=== PATIENT | male | born 1965 | race Caucasian/White ===

== ENCOUNTER 2019-03-29 23:30 | Inpatient (IN) | payer BC ==
[2019-03-29] MEDS ORDERED: EPINEPHrine 4 MG in DEXTROSE 5% IN WATER 250 ML IV ONE ×2 (23:37)
[2019-03-29] MEDS: SODIUM CHLORIDE 0.9% 500 ML 500 ML IV SCH (23:48)
[2019-03-29 23:49] LABS: Glucose,Whole Blood 235 mg/dL (75-99)
[2019-03-29] MEDS: NOREPINEPHRINE 32 MG in SODIUM CHLORIDE 0.9% 218 ML IV SCH (23:56)
[2019-03-30 00:07] LABS: HCT 54.7 % (39.0-53.0); HGB 14.9 gm/dL (13.0-17.5); Hypochromasia Marked; MCH 32.5 pg (25.0-35.0); MCHC 27.3 g/dL (31.0-37.0); Macrocytosis Marked; Mean Platelet Volume 8.3; Platelet Count 167 k/uL (150-450); RDW 14.5 % (11.5-15.5)
[2019-03-30 00:08] LABS: Acetaminophen <10.0 ug/mL; African American GFR (CKD) 58 (>60 ml/min/1.73 sqM); Albumin 3.2 g/dL (3.5-5.0); Alcohol <10 mg/dL; Anion Gap 19 mmol/L; Calcium 8.2 mg/dL (8.4-10.2); Carbon Dioxide 17 mmol/L (22-30); Chloride 102 mmol/L (98-107); Creatine Kinase 154 U/L (55-170); Glucose 289 mg/dL (74-99); Non-African American GFR(CKD) 50 (>60 ml/min/1.73 sqM); Salicylate <1.0 mg/dL; Sodium 138 mmol/L (137-145); Total Bilirubin 0.5 mg/dL (0.2-1.3); Total Protein 5.3 g/dL (6.3-8.2)
[2019-03-30 00:11] LABS: INR 1.2 (<1.2); Partial Thromboplastin Time 32.2 sec (22.0-30.0); Prothrombin Time 12.2 sec (9.0-12.0)
--- NOTE | 2019-03-30 00:12 | XR ---
EXAMINATION TYPE: XR chest 1V portable DATE OF EXAM: 03/29/2019 COMPARISON: NONE HISTORY: Fever TECHNIQUE: Single view FINDINGS: There is nasogastric tube in the tip is well into the stomach. There is no heart failure. T here is no confluent pneumonic infiltrate. There are chest leads. Endotracheal tube is 2.5 cm from th e lisa. There is slight blunting of the left costophrenic angle. IMPRESSION: There is some pleural reaction and atelectasis left lung base. No heart failure.
[2019-03-30 00:17] LABS: ALT 70 U/L (4-49); AST 48 U/L (17-59); Alkaline Phosphatase 77 U/L (38-126); Blood Urea Nitrogen 22 mg/dL (9-20); Magnesium 2.1 mg/dL (1.6-2.3); Potassium 4.4 mmol/L (3.5-5.1)
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
--- NOTE | 2019-03-30 00:36 | CT ---
EXAMINATION TYPE: CT brain cspine wo con DATE OF EXAM: 03/30/2019 COMPARISON: None HISTORY: AMS CT DLP: 1286.1 mGycm Automated exposure control for dose reduction was used. Ventricles have normal size. There is no mass effect nor midline shift. There is no sign of intracran ial hemorrhage. Calvarium is intact. The skull base is intact. The cervical vertebra have normal spacing and alignment. Posterior elements are intact. The facet kike nts are intact. There is endotracheal tube and nasogastric tube. Prevertebral soft tissues appear nor mal. IMPRESSION: Negative CT scan of the brain. Negative CT scan cervical spine.
[2019-03-30 00:45] LABS: ABG Base Excess -13.7 mmol/L; ABG HCO3 16 mmol/L (21-25); ABG Oxygen Saturation 99.6 % (94-97); ABG PCO2 54 mmHg (35-45); ABG PO2 360 mmHg (83-108); ABG TCO2 18 mmol/L (19-24)
[2019-03-30 00:47] LABS: Basophils # (M) 0.09 k/uL (0-0.2); Lymphocytes # (M) 4.09 k/uL (1.0-4.8); Monocytes # (M) 0.56 k/uL (0-1.0); Neutrophils # (M) 4.65 k/uL (1.3-7.7); Neutrophils % (M) 50 %; Nucleated Red Blood Cells 1 /100 WBC (0-0); Total Cells Counted 200; WBC 9.3 k/uL (3.8-10.6)
[2019-03-30] MEDS ORDERED: SODIUM CHLORIDE 0.9% 1,000 ML IV ONE ×4 (00:49→12:14)
[2019-03-30] MEDS: SODIUM CHLORIDE 0.9% 500 ML 500 ML IV SCH (00:50)
[2019-03-30 00:56] LABS: Allen Test Performed? yes
[2019-03-30 01:34] LABS: Appearance,Urine Cloudy (Clear); Bacteria,Urine Occasional /hpf; Bilirubin,Urine Negative (Negative); Blood,Urine Large (Negative); Color,Urine Yellow; Glucose,Urine (UA) Negative (Negative); Hyaline Casts,Urine 189 /lpf (0-2); Ketones,Urine Negative (Negative); Leukocyte Esterase,Urine Negative (Negative); Mucus,Urine Few /hpf; Nitrite,Urine Negative (Negative); Protein,Urine 2+ (Negative); RBC,Urine >182 /hpf (0-5); WBC,Urine 19 /hpf (0-5)
[2019-03-30 01:37] LABS: Amphetamine Screen,Urine Not Detected (NotDetected); Barbiturate Screen,Urine Not Detected (NotDetected); Benzodiazepines Screen,Urine Not Detected (NotDetected); Cocaine Screen,Urine Detected (NotDetected); Methadone Screen, Urine Not Detected (NotDetected); Opiate Screen,Urine Not Detected (NotDetected); Oxycodone Screen, Urine Not Detected (NotDetected); Phencyclidine Screen,Urine Not Detected (NotDetected); Tricyclic Antidepressant,Urine Not Detected (NotDetected); Urn Cannabinoid Scrn Detected (NotDetected)
[2019-03-30] MEDS ORDERED: MIDAZOLAM 1 MG/ML 5 ML VIAL IV STA (01:39)
[2019-03-30] MEDS: SODIUM CHLORIDE 0.9% 1,000 ML IV SCH ×5 (01:43→22:45)
[2019-03-30] MEDS: NOREPINEPHRINE 32 MG in SODIUM CHLORIDE 0.9% 218 ML IV SCH (02:46)
[2019-03-30] MEDS ORDERED: ACETAMINOPHEN SUPPOSITORY 650 MG SUPP RECTAL PRN (04:36)
[2019-03-30] MEDS ORDERED: ARTIFICIAL TEARS OINTMENT 3.5 GM TUBE BOTH EYES PRN (04:36)
[2019-03-30] MEDS ORDERED: NALOXONE 0.4 MG/ML 1 ML VIAL IV PRN (04:36)
[2019-03-30] MEDS ORDERED: HEPARIN SODIUM,PORCINE 5,000 UNIT/ML 1 ML VIAL IV ONE (04:39)
[2019-03-30 05:23] LABS: Basophils % (A) 0 %; Eosinophils % (A) 0 %; HCT 50.1 % (39.0-53.0); HGB 15.2 gm/dL (13.0-17.5); Hypochromasia Marked; Lymphocytes # (A) 0.5 k/uL (1.0-4.8); Lymphocytes % (A) 6 %; MCH 32.3 pg (25.0-35.0); MCHC 30.3 g/dL (31.0-37.0); Macrocytosis Moderate; Mean Platelet Volume 7.4; Monocytes # (A) 0.6 k/uL (0-1.0); Monocytes % (A) 7 %; Neutrophils % (A) 86 %; Platelet Count 178 k/uL (150-450); RDW 14.3 % (11.5-15.5); WBC 9.3 k/uL (3.8-10.6)
[2019-03-30 05:31] LABS: MCV 106.6 fL (80.0-100.0)
[2019-03-30] MEDS: HEPARIN SOD,PORK IN 0.45% NACL 25,000 UNIT in 0.45% NACL 1 250ML.BAG IV SCH (05:32)
[2019-03-30 05:37] LABS: Calcium 7.3 mg/dL (8.4-10.2); Potassium 4.7 mmol/L (3.5-5.1)
[2019-03-30 06:26] LABS: Glucose,Whole Blood 104 mg/dL (75-99)
[2019-03-30] MEDS: NOREPINEPHRINE 4 MG in SODIUM CHLORIDE 0.9% 250 ML IV SCH (06:33)
[2019-03-30] MEDS: PROPOFOL 1,000 MG in EMPTY BAG 1 BAG IV SCH ×2 (06:34→13:13)
[2019-03-30 07:08] LABS: ABG Base Excess -1.5 mmol/L; ABG HCO3 25 mmol/L (21-25); ABG Oxygen Saturation 94.6 % (94-97); ABG PCO2 52 mmHg (35-45); ABG PH 7.29 (7.35-7.45); ABG PO2 73 mmHg (83-108); ABG TCO2 27 mmol/L (19-24); Allen Test Performed? Yes
[2019-03-30] MEDS ORDERED: CISATRACURIUM 2 MG/ML 5 ML VIAL IV ONE (11:08)
[2019-03-30] MEDS: IPRATROPIUM-ALBUTEROL 3 ML NEB INHALATION SCH ×4 (11:12→23:12)
--- NOTE | 2019-03-30 12:15 | XR ---
EXAMINATION TYPE: XR chest 1V portable DATE OF EXAM: 03/30/2019 Comparison: 03/29/2019 Clinical History: 53 year-old male shortness of breath Findings: ET tube is satisfactory. NG tube courses below the diaphragm. Left subclavian CVC tip at the cavoatri al junction. Heart remains borderline enlarged. Small left effusion with left basilar retrocardiac op acity persists. Mild interstitial prominence is unchanged. Impression: 1. Continued small left effusion with adjacent left basilar and retrocardiac atelectasis and/or conso lidation. 2. Stable borderline heart size.
[2019-03-30] MEDS: PIPERACILLIN-TAZOBACTAM 3.375 GM in SODIUM CHLORIDE 0.9% 100 ML IVPB SCH ×2 (13:13→16:17)
[2019-03-30] MEDS: CHLORHEXIDINE GLUCONATE 15 ML CUP MUCOUS MEM SCH ×2 (13:15→20:35)
[2019-03-30] MEDS: PANTOPRAZOLE 40 MG/10 ML VIAL IV SCH (13:15)
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
--- NOTE | 2019-03-30 14:00 | ECHOF ---
Referral Reason:cardiac arrest MEASUREMENTS -------- HEIGHT: 172.7 cm WEIGHT: 54.4 kg BP: RVIDd: 4.4 cm (< 3.3) IVSd: 1.1 cm (0.6 - 1.1) LVIDd: 3.7 cm (3.9 - 5.3) LVPWd: 1.0 cm (0.6 - 1.1) IVSs: 1.4 cm LVIDs: 2.9 cm LVPWs: 1.6 cm LAESV Index (A-L): 33.17 ml/m Ao Diam: 3.3 cm (2.0 - 3.7) AV Cusp: 2.4 cm (1.5 - 2.6) LA Diam: 2.4 cm (2.7 - 3.8) MV EXCURSION: 19.436 mm (> 18.000) MV EF SLOPE: 77 mm/s (70 - 150) EPSS: 0.9 cm MV E Keith: 0.37 m/s MV DecT: 368 ms MV A Keith: 0.43 m/s MV E/A Ratio: 0.85 RAP: 5.00 mmHg RVSP: 31.22 mmHg TAPSE: 13.88 mm FINDINGS -------- Sinus rhythm. This was a technically good study. Pt. on a vent. The left ventricular size is normal. Left ventricular wall thickness is normal. Overall left vent ricular systolic function is moderately impaired with, an EF between 35 - 40 %. There is paradoxica l/dysynergic septal motion consistent with right ventricular volume overload and/or elevated right ve ntricular end-diastolic pressure. Normal LAP. Grade 1 Diastolic Dysfunction. Basal inferoseptal L V wall motion is hypokinetic. Mid anterior LV wall motion is hypokinetic. Mid lateral LV wall m otion is hypokinetic. Mid inferior LV wall motion is hypokinetic. Mid inferoseptal LV wall julio on is hypokinetic. The right ventricle is severely enlarged. LA is midly dilated 29-33ml/m2. The right atrium is mildly enlarged. Aortic valve is trileaflet and is mildly thickened. The mitral valve is normal. The mitral valve leaflets are mildly thickened. Mild mitral annular c alcification present. Mild mitral regurgitation is present. The tricuspid valve appears myxomatous. Moderate tricuspid regurgitation present. Right ventricul ar systolic pressure is normal at < 35 mmHg. There is no pulmonic regurgitation present. The aortic root size is normal. Normal inferior vena cava with normal inspiratory collapse consistent with estimated right atrial pre ssure of 5 mmHg. There is a trivial pericardial effusion present. Large Pleural Effusion. CONCLUSIONS -------- 1. Sinus rhythm. 2. This was a technically good study. 3. Pt. on a vent. 4. The left ventricular size is normal. 5. Left ventricular wall thickness is normal. 6. Overall left ventricular systolic function is moderately impaired with, an EF between 35 - 40 %. 7. There is paradoxical/dysynergic septal motion consistent with right ventricular volume overload an d/or elevated right ventricular end-diastolic pressure. 8. Normal LAP. Grade 1 Diastolic Dysfunction. 9. Basal inferoseptal LV wall motion is hypokinetic. 10. Mid anterior LV wall motion is hypokinetic. 11. Mid lateral LV wall motion is hypokinetic. 12. Mid inferior LV wall motion is hypokinetic. 13. Mid inferoseptal LV wall motion is hypokinetic. 14. The right ventricle is severely enlarged. 15. LA is midly dilated 29-33ml/m2. 16. The right atrium is mildly enlarged. 17. Aortic valve is trileaflet and is mildly thickened. 18. The mitral valve is normal. 19. The mitral valve leaflets are mildly thickened. 20. Mild mitral annular calcification present. 21. Mild mitral regurgitation is present. 22. The tricuspid valve appears myxomatous. 23. Moderate tricuspid regurgitation present. 24. Right ventricular systolic pressure is normal at < 35 mmHg. 25. There is no pulmonic regurgitation present. 26. The aortic root size is normal. 27. Normal inferior vena cava with normal inspiratory collapse consistent with estimated right atrial pressure of 5 mmHg. 28. There is a trivial pericardial effusion present. 29. Large Pleural Effusion. STONE RUBBER: Katerin Marin RDCS
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
[2019-03-30] MEDS: METOPROLOL TARTRATE 25 MG TAB PO SCH ×2 (15:47→20:36)
[2019-03-30] MEDS: ASPIRIN 81 MG PO SCH (15:47)
--- NOTE | 2019-03-30 18:21 | P.HPIM ---
History of Present Illness H&P Date: 03/30/19 Chief Complaint: Acute cardiac arrest Patient is a 53-year-old male without significant past medical history was brought to the hospital by EMS. Patient was found unresponsive in the street and was EMS was called by the [facility]. When the EMS arrived patient was found to be unresponsive with pulse. During their assessment and transport into the ambulance a love began to have agonal breathing and lost pulses. CPR was initiated patient was intubated and brought to the ER. Patient received 5 epinephrine injections prior to arrival to the hospital. Patient was returned back to spontaneous circulation. CT head and cervical spine showed no acute infective process and fractures or dislocations. Chest x-ray showed there is some pleural reaction and atelectasis left lung base. No heart failure. EKG showed atrial fibrillation. Laboratory data reviewed. Hemoglobin 14.9, WBC9.3 Lactic acid 15.8, ALT 70 neck slightly UDS is positive for cocaine and marijuana. Troponin 0.108 and 1.250 cr 1.53 Review of Systems Review of systems could not be apparent from the patient. Past Medical History Additional Past Medical History / Comment(s): unknown History of Any Multi-Drug Resistant Organisms: None Reported Additional Past Surgical History / Comment(s): unknown Smoking Status: Unknown if ever smoked Past Alcohol Use History: Unable to Obtain Past Drug Use History: Unable to Obtain - Past Family History Mother History Unknown: Yes Medications and Allergies Allergies Allergy/AdvReac Type Severity Reaction Status Date / Time No Known Allergies Allergy Unverified 03/30/19 04:53 Physical Exam Vitals: Vital Signs Temp Pulse Resp BP Pulse Ox 03/30/19 11:15 88 03/30/19 10:30 65 24 122/88 96 03/30/19 10:15 64 24 121/80 97 03/30/19 10:00 66 19 125/88 97 03/30/19 09:45 65 19 117/87 96 03/30/19 09:30 65 24 111/82 03/30/19 09:15 64 24 109/80 95 03/30/19 09:00 64 20 107/82 94 L 03/30/19 08:45 65 21 110/83 93 L 03/30/19 08:30 66 16 124/91 93 L 03/30/19 08:15 70 20 101/72 94 L 03/30/19 08:00 98.2 F 64 22 94/67 91 L 03/30/19 07:45 65 20 94/67 91 L 03/30/19 07:30 65 20 97/70 92 L 03/30/19 07:15 68 20 93 L 03/30/19 07:00 70 20 111/78 93 L 03/30/19 06:45 73 20 148/117 93 L 03/30/19 06:30 86 26 H 136/94 95 03/30/19 06:00 98.2 F 82 28 H 134/92 96 03/30/19 05:48 81 24 134/92 95 03/30/19 05:40 79 22 139/96 94 L 03/30/19 05:20 75 20 120/88 95 03/30/19 05:10 71 19 128/96 95 03/30/19 05:00 77 22 126/89 93 L 03/30/19 04:50 74 22 126/89 95 03/30/19 04:40 77 20 138/101 94 L 03/30/19 04:30 77 20 127/89 95 03/30/19 04:20 82 20 127/89 94 L 03/30/19 04:10 74 20 122/87 03/30/19 04:00 75 28 H 129/88 94 L 03/30/19 03:50 76 20 112/78 95 03/30/19 03:40 74 20 107/74 95 03/30/19 03:30 75 18 102/72 95 03/30/19 03:20 71 16 104/78 95 03/30/19 03:10 72 21 98/66 95 03/30/19 02:50 71 20 100/70 95 03/30/19 02:10 71 20 74/52 97 03/30/19 01:40 79 20 79/54 95 03/30/19 01:10 79 20 92/60 93 L 03/30/19 00:40 80 17 81/58 99 03/30/19 00:10 85 18 96/61 99 03/30/19 00:03 86 19 96/68 99 03/29/19 23:32 97.8 F 84 16 61/41 100 Intake and Output 03/29/19 03/30/19 03/30/19 22:59 06:59 14:59 Intake Total 156.009 805.770 Output Total 180 110 Balance -23.991 695.770 Intake: IV 150 800 0.9 NS 150 800 Intake, IV Titration 6.009 5.770 Amount EPINEPHrine 4 mg In 4.802 Dextrose 5% in Water 250 ml @ 0.01 MCG/KG/MIN 2. 058 mls/hr IV .Q24H ONE Rx#:[id number] Norepinephrine 4 mg In 0.173 Sodium Chloride 0.9% 250 ml @ 0.05 MCG/KG/MIN 10. 369 mls/hr IV .Q24H MARIA Rx#:[id number] Propofol 1,000 mg In 1.034 5.770 Empty Bag 1 bag @ Titrate IV .Q0M MARIA Rx#: [id number] Output: Urine 180 110 Other: Weight 54.431 kg 54.431 kg PHYSICAL EXAMINATION: Patient is lying in the bed comfortably, currently sedated and intubated... HEENT: Normocephalic. Neck is supple. Pupils reactive. Nostrils clear. Oral cavity is moist. Ears reveal no drainage. Neck reveals no JVD, carotid bruits, or thyromegaly. CHEST EXAMINATION: Trachea is central. Symmetrical expansion. Bibasilar diminished air entry and coarse breath sounds.. CARDIAC: Normal S1, S2 with no gallops. No murmurs ABDOMEN: Soft. Bowel sounds normal. No organomegaly. No abdominal bruits. Extremities: reveal no edema. No clubbing or cyanosis Neurologically sedated and on mechanical ventilator.. No focal deficits noted Skin: No rash or skin lesions. Psychiatric: Could not base is completely Musculoskeletal: No joint swelling or deformity. Results CBC & Chem 7: 03/30/19 04:58 03/30/19 04:58 Labs: Abnormal Lab Results - Last 24 Hours (Table) 03/29/19 03/29/19 03/29/19 Range/Units 23:37 23:45 23:45 Hct 54.7 H (39.0-53.0) % MCV 119.0 H (80.0-100.0) fL MCHC 27.3 L (31.0-37.0) g/dL Neutrophils # (1.3-7.7) k/uL Lymphocytes # (1.0-4.8) k/uL Nucleated RBCs 1 H (0-0) /100 WBC Macrocytosis Marked A PT (9.0-12.0) sec INR (<1.2) APTT (22.0-30.0) sec ABG pH (7.35-7.45) ABG pCO2 (35-45) mmHg ABG pO2 (83-108) mmHg ABG HCO3 (21-25) mmol/L ABG Total CO2 (19-24) mmol/L ABG O2 Saturation (94-97) % Carbon Dioxide 17 L (22-30) mmol/L BUN 22 H (9-20) mg/dL Creatinine 1.53 H (0.66-1.25) mg/dL Glucose 289 H (74-99) mg/dL POC Glucose (mg/dL) 235 H (75-99) mg/dL Plasma Lactic Acid Delbert (0.7-2.0) mmol/L Calcium 8.2 L (8.4-10.2) mg/dL ALT 70 H (4-49) U/L Troponin I (0.000-0.034) ng/mL Total Protein 5.3 L (6.3-8.2) g/dL Albumin 3.2 L (3.5-5.0) g/dL Urine Protein (Negative) Urine Blood (Negative) Urine RBC (0-5) /hpf Urine WBC (0-5) /hpf Urine WBC Clumps (None) /hpf Urine Bacteria (None) /hpf Hyaline Casts (0-2) /lpf Urine Mucus (None) /hpf Urine Cocaine Screen (NotDetected) U Marijuana (THC) Screen (NotDetected) 03/29/19 03/29/19 03/29/19 Range/Units 23:45 23:45 23:45 Hct (39.0-53.0) % MCV (80.0-100.0) fL MCHC (31.0-37.0) g/dL Neutrophils # (1.3-7.7) k/uL Lymphocytes # (1.0-4.8) k/uL Nucleated RBCs (0-0) /100 WBC Macrocytosis PT 12.2 H (9.0-12.0) sec INR 1.2 H (<1.2) APTT 32.2 H (22.0-30.0) sec ABG pH (7.35-7.45) ABG pCO2 (35-45) mmHg ABG pO2 (83-108) mmHg ABG HCO3 (21-25) mmol/L ABG Total CO2 (19-24) mmol/L ABG O2 Saturation (94-97) % Carbon Dioxide (22-30) mmol/L BUN (9-20) mg/dL Creatinine (0.66-1.25) mg/dL Glucose (74-99) mg/dL POC Glucose (mg/dL) (75-99) mg/dL Plasma Lactic Acid Delbert 15.8 H* (0.7-2.0) mmol/L Calcium (8.4-10.2) mg/dL ALT (4-49) U/L Troponin I 0.108 H* (0.000-0.034) ng/mL Total Protein (6.3-8.2) g/dL Albumin (3.5-5.0) g/dL Urine Protein (Negative) Urine Blood (Negative) Urine RBC (0-5) /hpf Urine WBC (0-5) /hpf Urine WBC Clumps (None) /hpf Urine Bacteria (None) /hpf Hyaline Casts (0-2) /lpf Urine Mucus (None) /hpf Urine Cocaine Screen (NotDetected) U Marijuana (THC) Screen (NotDetected) 03/30/19 03/30/19 03/30/19 Range/Units 00:45 01:19 01:19 Hct (39.0-53.0) % MCV (80.0-100.0) fL MCHC (31.0-37.0) g/dL Neutrophils # (1.3-7.7) k/uL Lymphocytes # (1.0-4.8) k/uL Nucleated RBCs (0-0) /100 WBC Macrocytosis PT (9.0-12.0) sec INR (<1.2) APTT (22.0-30.0) sec ABG pH 7.09 L* (7.35-7.45) ABG pCO2 54 H (35-45) mmHg ABG pO2 360 H (83-108) mmHg ABG HCO3 16 L (21-25) mmol/L ABG Total CO2 18 L (19-24) mmol/L ABG O2 Saturation 99.6 H (94-97) % Carbon Dioxide (22-30) mmol/L BUN (9-20) mg/dL Creatinine (0.66-1.25) mg/dL Glucose (74-99) mg/dL POC Glucose (mg/dL) (75-99) mg/dL Plasma Lactic Acid Delbert (0.7-2.0) mmol/L Calcium (8.4-10.2) mg/dL ALT (4-49) U/L Troponin I (0.000-0.034) ng/mL Total Protein (6.3-8.2) g/dL Albumin (3.5-5.0) g/dL Urine Protein 2+ H (Negative) Urine Blood Large H (Negative) Urine RBC >182 H (0-5) /hpf Urine WBC 19 H (0-5) /hpf Urine WBC Clumps Few H (None) /hpf Urine Bacteria Occasional H (None) /hpf Hyaline Casts 189 H (0-2) /lpf Urine Mucus Few H (None) /hpf Urine Cocaine Screen Detected H (NotDetected) U Marijuana (THC) Screen Detected H (NotDetected) 03/30/19 03/30/19 03/30/19 Range/Units 04:58 04:58 04:58 Hct (39.0-53.0) % MCV 106.6 H D (80.0-100.0) fL MCHC 30.3 L (31.0-37.0) g/dL Neutrophils # 8.0 H (1.3-7.7) k/uL Lymphocytes # 0.5 L (1.0-4.8) k/uL Nucleated RBCs (0-0) /100 WBC Macrocytosis PT (9.0-12.0) sec INR (<1.2) APTT (22.0-30.0) sec ABG pH (7.35-7.45) ABG pCO2 (35-45) mmHg ABG pO2 (83-108) mmHg ABG HCO3 (21-25) mmol/L ABG Total CO2 (19-24) mmol/L ABG O2 Saturation (94-97) % Carbon Dioxide (22-30) mmol/L BUN 28 H (9-20) mg/dL Creatinine 1.60 H (0.66-1.25) mg/dL Glucose 139 H (74-99) mg/dL POC Glucose (mg/dL) (75-99) mg/dL Plasma Lactic Acid Delbert (0.7-2.0) mmol/L Calcium 7.3 L (8.4-10.2) mg/dL ALT (4-49) U/L Troponin I 1.250 H* (0.000-0.034) ng/mL Total Protein (6.3-8.2) g/dL Albumin (3.5-5.0) g/dL Urine Protein (Negative) Urine Blood (Negative) Urine RBC (0-5) /hpf Urine WBC (0-5) /hpf Urine WBC Clumps (None) /hpf Urine Bacteria (None) /hpf Hyaline Casts (0-2) /lpf Urine Mucus (None) /hpf Urine Cocaine Screen (NotDetected) U Marijuana (THC) Screen (NotDetected) 03/30/19 03/30/19 Range/Units 06:14 07:07 Hct (39.0-53.0) % MCV (80.0-100.0) fL MCHC (31.0-37.0) g/dL Neutrophils # (1.3-7.7) k/uL Lymphocytes # (1.0-4.8) k/uL Nucleated RBCs (0-0) /100 WBC Macrocytosis PT (9.0-12.0) sec INR (<1.2) APTT (22.0-30.0) sec ABG pH 7.29 L (7.35-7.45) ABG pCO2 52 H (35-45) mmHg ABG pO2 73 L (83-108) mmHg ABG HCO3 (21-25) mmol/L ABG Total CO2 27 H (19-24) mmol/L ABG O2 Saturation (94-97) % Carbon Dioxide (22-30) mmol/L BUN (9-20) mg/dL Creatinine (0.66-1.25) mg/dL Glucose (74-99) mg/dL POC Glucose (mg/dL) 104 H (75-99) mg/dL Plasma Lactic Acid Delbert (0.7-2.0) mmol/L Calcium (8.4-10.2) mg/dL ALT (4-49) U/L Troponin I (0.000-0.034) ng/mL Total Protein (6.3-8.2) g/dL Albumin (3.5-5.0) g/dL Urine Protein (Negative) Urine Blood (Negative) Urine RBC (0-5) /hpf Urine WBC (0-5) /hpf Urine WBC Clumps (None) /hpf Urine Bacteria (None) /hpf Hyaline Casts (0-2) /lpf Urine Mucus (None) /hpf Urine Cocaine Screen (NotDetected) U Marijuana (THC) Screen (NotDetected) Microbiology - Last 24 Hours (Table) 03/30/19 01:06 Sputum Culture - Preliminary Sputum 03/30/19 01:19 Urine Culture - Preliminary Urine,Clean Catch Thrombosis Risk Factor Assmnt - DVT/VTE Prophylaxis DVT/VTE Prophylaxis: Pharmacologic Prophylaxis ordered Assessment and Plan Assessment: Acute cardiopulmonary arrest likely due to cocaine and marijuana use. Currently on mechanical ventilator. Down time within 20 minutes Acute hypoxemic respiratory failure Acute non-ST elevated IA likely related to microvascular ischemia due to cocaine use Paroxysmal atrial fibrillation. Rate controlled. Possible anoxic encephalopathy Acute kidney injury most likely prerenal Severe lactic acidosis DVT prophylaxis Plan: Patient is currently on mechanical ventilator. Patient is also sedated. Patient will be continued on heparin drip and empiric antibiotics in the form of Zosyn. Cardiology and pulmonary is following. Patient was started on aspirin and Lopressor and Lipitor. Further recommendations based on the clinical course. Prognosis guarded. discussed with family at bedside in detail. Time with Patient: Greater than 30
[2019-03-30] MEDS: ATORVASTATIN 40 MG TAB PO SCH (20:19)
--- NOTE | 2019-03-30 23:34 | PCN ---
PROCEDURE NOTE PROCEDURE PERFORMED: Left subclavian triple-lumen catheter. PREOP DIAGNOSIS: Administration of fluids and pressors. POSTOP DIAGNOSIS: Administration of fluids and pressors. TRIPLE LUMEN CATHETER PLACEMENT: Indication: Hemodynamic monitoring/Intravenous access. A time-out was completed verifying correct patient, procedure, site, positioning, and implant(s) or special equipment if applicable. The patient was placed in a dependent position appropriate for triple lumen catheter placement based on the vein to be cannulated. The patient's left shoulder was prepped and draped in sterile fashion. 1% Lidocaine was used to anesthetize the surrounding skin area. A triple lumen 9F Cordis catheter was introduced into the subclavian vein using Seldinger technique. The catheter was threaded smoothly over the guide wire and appropriate blood return was obtained. Each lumen of the catheter was evacuated of air and flushed with sterile saline. The catheter was then sutured in place to the skin and a sterile dressing applied. Perfusion to the extremity distal to the point of catheter insertion was checked and found to be adequate. There was universal timeout and informed consent. The left subclavian site was used. There was good blood return from all 3 ports. The tip of the catheter on x-ray was seen to be in the superior vena cava or right atrium. The catheter was sutured in place. Sterile dressing was applied by the nurse. There was no immediate complication. The patient tolerated the procedure well. There was no additional issues with the procedure. Again, the chest x-ray was ordered and evaluated. MMODL / IJN: [id number] /
--- NOTE | 2019-03-30 23:34 | PCN ---
PROCEDURE NOTE MACHINE CAPTAIN: Dr. Josemanuel Johnson. ARTERIAL LINE PLACEMENT: Indications: Hemodynamic monitoring. A time-out was completed verifying correct patient, procedure, site, positioning, and implant(s) or special equipment if applicable. Pan's test was performed to ensure adequate perfusion. The patient's left wrist was prepped and draped in sterile fashion. 1% Lidocaine was used to anesthetize the area. An 18G Arrow arterial line was introduced into the radial artery. The catheter was threaded over the guide wire and the needle was removed with appropriate pulsatile blood return. Blood loss was minimal. The catheter was then sutured in place to the skin and a sterile dressing applied. Perfusion to the extremity distal to the point of catheter insertion was checked and found to be adequate. The patient tolerated the procedure well and there were no complications. There was informed consent and universal timeout. The reason for the procedure was frequent blood draws and blood gas monitoring. The left radial site was used. There was no complication. The catheter was sutured in place. There was good waveform of blood pressure reading. A sterile dressing was applied by the nurse. MMODL / IJN: [id number] /
[2019-03-31] MEDS: PIPERACILLIN-TAZOBACTAM 3.375 GM in SODIUM CHLORIDE 0.9% 100 ML IVPB SCH ×3 (00:21→17:16)
[2019-03-31] MEDS: PROPOFOL 1,000 MG in EMPTY BAG 1 BAG IV SCH (02:24)
[2019-03-31] MEDS: SODIUM CHLORIDE 0.9% 1,000 ML IV SCH ×3 (02:25→17:16)
[2019-03-31] MEDS: IPRATROPIUM-ALBUTEROL 3 ML NEB INHALATION SCH ×6 (03:22→23:31)
[2019-03-31 03:45] LABS: Basophils % (A) 0 %; Eosinophils # (A) 0.1 k/uL (0-0.7); Eosinophils % (A) 1 %; HCT 50.7 % (39.0-53.0); HGB 15.2 gm/dL (13.0-17.5); Hypochromasia Slight; Lymphocytes # (A) 0.5 k/uL (1.0-4.8); Lymphocytes % (A) 5 %; MCH 31.2 pg (25.0-35.0); MCHC 30.1 g/dL (31.0-37.0); MCV 103.9 fL (80.0-100.0); Macrocytosis Moderate; Mean Platelet Volume 7.6; Monocytes # (A) 0.4 k/uL (0-1.0); Monocytes % (A) 4 %; Neutrophils # (A) 8.5 k/uL (1.3-7.7); Neutrophils % (A) 89 %; Platelet Count 144 k/uL (150-450); RBC 4.88 m/uL (4.30-5.90); RDW 14.6 % (11.5-15.5); WBC 9.6 k/uL (3.8-10.6)
[2019-03-31 04:21] LABS: Calcium 6.6 mg/dL (8.4-10.2); Potassium 3.7 mmol/L (3.5-5.1)
[2019-03-31 04:22] LABS: ABG Base Excess -8.1 mmol/L; ABG HCO3 19 mmol/L (21-25); ABG PCO2 43 mmHg (35-45); ABG PH 7.25 (7.35-7.45); ABG PO2 68 mmHg (83-108); ABG TCO2 20 mmol/L (19-24)
[2019-03-31 04:37] LABS: Allen Test Performed? no
[2019-03-31] MEDS ORDERED: POTASSIUM BICARBONATE/CIT AC 20 MEQ TABLET.EFF PO ONE (05:23)
[2019-03-31] MEDS: NOREPINEPHRINE 4 MG in SODIUM CHLORIDE 0.9% 250 ML IV SCH (06:44)
[2019-03-31 07:30] LABS: ABG PH 7.09 (7.35-7.45)
--- NOTE | 2019-03-31 07:42 | XR ---
EXAMINATION TYPE: XR chest 1V portable DATE OF EXAM: 03/31/2019 Comparison: 03/30/2019 Clinical History: 53 year-old male Tube placement Findings: The tip of the ET tube overlies the NG tube and its termination point is not clearly seen. Left subcl alla CVC tip at the cavoatrial junction. Heart remains mildly enlarged. Relative upper lung lucencie s. Continued small left effusion with left basilar retrocardiac opacity. Impression: 1. On the present exam, the tip of the ET tube overlies the NG tube and its termination point is not clearly seen. Attention on follow-up. 2. Stable mild cardiomegaly. Possible background of COPD. 3. Ongoing small left effusion with adjacent left basilar and retrocardiac atelectasis and/or consoli dation.
[2019-03-31] MEDS ORDERED: FUROSEMIDE 10 MG/ML 4 ML VIAL IV STA (07:48)
[2019-03-31] MEDS: HEPARIN SOD,PORK IN 0.45% NACL 25,000 UNIT in 0.45% NACL 1 250ML.BAG IV SCH (08:54)
[2019-03-31] MEDS: CHLORHEXIDINE GLUCONATE 15 ML CUP MUCOUS MEM SCH ×2 (09:16→22:44)
[2019-03-31] MEDS: PANTOPRAZOLE 40 MG/10 ML VIAL IV SCH (09:16)
[2019-03-31] MEDS: METOPROLOL TARTRATE 25 MG TAB PO SCH ×2 (09:17→22:44)
[2019-03-31] MEDS: SODIUM BICARBONATE TAB 650 MG TAB PO SCH ×2 (09:17→22:43)
[2019-03-31] MEDS: ASPIRIN 81 MG PO SCH (09:17)
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
[2019-03-31] MEDS: ATORVASTATIN 40 MG TAB PO SCH (22:36)
--- NOTE | 2019-03-31 23:31 | P.PN ---
Subjective Progress Note Date: 03/31/19 Principal diagnosis: Status post outside hospital cardiac arrest Crack cocaine use Patient is a 53-year-old male without significant past medical history was brought to the hospital by EMS. Patient was found unresponsive in the street and was EMS was called by the nabil Burks. When the EMS arrived patient was found to be unresponsive with pulse. During their assessment and transport into the ambulance a love began to have agonal breathing and lost pulses. CPR was initiated patient was intubated and brought to the ER. Patient received 5 epinephrine injections prior to arrival to the hospital. Patient was returned back to spontaneous circulation. CT head and cervical spine showed no acute infective process and fractures or dislocations. Chest x-ray showed there is some pleural reaction and atelectasis left lung base. No heart failure. EKG showed atrial fibrillation. Laboratory data reviewed. Hemoglobin 14.9, WBC9.3 Lactic acid 15.8, ALT 70 neck slightly UDS is positive for cocaine and marijuana. Troponin 0.108 and 1.250 cr 1.53 03/31/2019 Patient remained on mechanical ventilator. Currently sedation is off and patient is non responsive urine with painful stimuli. Patient is being continued on heparin drip. Troponin went up to 2.4 today. Patient is not any pressors support. Currently in sinus rhythm. Patient does have dark brown stool in the fecal management system. Otherwise hemoglobin level is 15.2. BUN 46 and creatinine 2.2 2-D echocardiogram showed ejection fraction 30% to 40%, paradoxical dysynergic septal motion. RV severely enlarged, mild mitral regurgitation, moderate tricuspid regurgitation and large pleural effusion. Chest x-ray showed small left pleural effusion and cardiomegaly. Stable COPD findings. Active Medications Acetaminophen (Tylenol Suppository) 650 mg RECTAL Q4HR PRN PRN Reason: Fever and/or Mild Pain Albuterol/Ipratropium (Duoneb 0.5 Mg-3 Mg/3 Ml Soln) 3 ml INHALATION RT-Q4H [facility] Last Admin: 03/31/19 19:39 Dose: 3 ml Documented by: Aspirin (Aspirin) 81 mg PO DAILY [facility] Last Admin: 03/31/19 09:17 Dose: 81 mg Documented by: Atorvastatin Calcium (Lipitor) 40 mg PO HS [facility] Last Admin: 03/31/19 22:36 Dose: Not Given Documented by: Chlorhexidine Gluconate (Peridex) 15 ml MUCOUS MEM BID [facility] Last Admin: 03/31/19 22:44 Dose: 15 ml Documented by: Sodium Chloride (Saline 0.9%) 1,000 mls @ 125 mls/hr IV .Q8H [facility] Last Admin: 03/31/19 17:16 Dose: 125 mls/hr Documented by: Heparin Sodium/Sodium Chloride (25,000 unit/ Sodium Chloride) 250 mls @ 6.532 mls/hr IV .Q24H [facility]; Protocol Last Admin: 03/31/19 08:54 Dose: 14 units/kg/hr, 7.62 mls/hr Documented by: Norepinephrine Bitartrate 4 mg (/ Sodium Chloride) 254 mls @ 10.369 mls/hr IV .Q24H [facility]; Protocol Last Admin: 03/31/19 06:44 Dose: Not Given Documented by: Propofol 1,000 mg/ IV Solution 100 mls @ 0 mls/hr IV .Q0M [facility]; Protocol Last Titration: 03/31/19 22:41 Dose: 20 mcg/kg/min, 7.98 mls/hr Documented by: Piperacillin Sod/Tazobactam (Sod 3.375 gm/ Sodium Chloride) 100 mls @ 25 mls/hr IVPB Q8HR [facility] Last Admin: 03/31/19 17:16 Dose: 25 mls/hr Documented by: Metoprolol Tartrate (Lopressor) 25 mg PO BID [facility] Last Admin: 03/31/19 22:44 Dose: 25 mg Documented by: Multi-Ingred Cream/Lotion/Oil/Oint (Lubrifresh Pm Ointment) 1 applic BOTH EYES Q4HR PRN PRN Reason: Dry Eye(s) Naloxone HCl (Narcan) 0.2 mg IV Q2M PRN PRN Reason: Opioid Reversal Pantoprazole Sodium (Protonix) 40 mg IV DAILY [facility] Last Admin: 03/31/19 09:16 Dose: 40 mg Documented by: Sodium Bicarbonate (Sodium Bicarbonate Tab) 650 mg PO BID [facility] Last Admin: 03/31/19 22:43 Dose: 650 mg Documented by: Objective - Vital Signs Vital signs: Vital Signs Temp 98.4 F 03/31/19 16:00 Pulse 72 03/31/19 19:55 Resp 22 03/31/19 19:00 BP 133/88 01/05/20 19:00 Pulse Ox 93 L 03/31/19 19:00 Intake & Output 03/31/19 03/31/19 04/01/19 06:59 18:59 06:59 Intake Total 2817.794 1875.103 145 Output Total 557 2160 150 Balance 2260.794 -284.897 -5 Weight 66.5 kg 66.5 kg Intake: IV 2400 1675 125 0.9 NS 2400 1575 125 zosyn 100 Intake, IV Titration 417.794 140.103 Amount Heparin Sod,Pork in 0.45% 53.127 96.012 NaCl 25,000 unit In 0.45 % NaCl 1 250ml.bag @ 12 UNITS/KG/HR 6.532 mls/hr IV .Q24H [facility] Rx#: [id number] Piperacillin-Tazobactam 3 300 .375 gm In Sodium Chloride 0.9% 100 ml @ 25 mls/hr IVPB Q8HR [facility] Rx# :[id number] Propofol 1,000 mg In 64.667 44.091 Empty Bag 1 bag @ Titrate IV .Q0M [facility] Rx#: [id number] Tube Feeding 60 20 Output: Urine 557 1560 150 Stool 600 Other: Voiding Method Indwelling Catheter Indwelling Catheter # Bowel Movements 300 ABP, PAP, CO, CI - Last Documented Arterial Blood Pressure 126/80 - Exam PHYSICAL EXAMINATION: Patient is lying in the bed comfortably, currently off sedation. Patient is not responding with verbal or painful stimuli.... HEENT: Normocephalic. Neck is supple. Pupils reactive. Nostrils clear. Oral cavity is moist. Ears reveal no drainage. Neck reveals no JVD, carotid bruits, or thyromegaly. CHEST EXAMINATION: Trachea is central. Symmetrical expansion. Bibasilar diminished air entry and coarse breath sounds.. CARDIAC: Normal S1, S2 with no gallops. No murmurs ABDOMEN: Soft. Bowel sounds normal. No organomegaly. No abdominal bruits. Extremities: reveal no edema. No clubbing or cyanosis Neurologically non responsive... No focal deficits noted Skin: No rash or skin lesions. Psychiatric: Could not base is completely Musculoskeletal: No joint swelling or deformity. - Labs CBC & Chem 7: 03/31/19 03:20 03/31/19 17:25 Labs: Abnormal Lab Results - Last 24 Hours (Table) 03/30/19 03/31/19 03/31/19 Range/Units 00:45 03:20 03:20 MCV 103.9 H (80.0-100.0) fL MCHC 30.1 L (31.0-37.0) g/dL Plt Count 144 L (150-450) k/uL Neutrophils # 8.5 H (1.3-7.7) k/uL Lymphocytes # 0.5 L (1.0-4.8) k/uL APTT (22.0-30.0) sec ABG pH 7.09 L* (7.35-7.45) ABG pO2 (83-108) mmHg ABG HCO3 (21-25) mmol/L ABG O2 Saturation (94-97) % Chloride (98-107) mmol/L Carbon Dioxide (22-30) mmol/L BUN (9-20) mg/dL Creatinine (0.66-1.25) mg/dL Calcium (8.4-10.2) mg/dL Troponin I 2.490 H* (0.000-0.034) ng/mL 03/31/19 03/31/19 03/31/19 Range/Units 03:20 03:20 04:22 MCV (80.0-100.0) fL MCHC (31.0-37.0) g/dL Plt Count (150-450) k/uL Neutrophils # (1.3-7.7) k/uL Lymphocytes # (1.0-4.8) k/uL APTT 51.1 H (22.0-30.0) sec ABG pH 7.25 L (7.35-7.45) ABG pO2 68 L (83-108) mmHg ABG HCO3 19 L (21-25) mmol/L ABG O2 Saturation 91.0 L (94-97) % Chloride 115 H (98-107) mmol/L Carbon Dioxide 18 L (22-30) mmol/L BUN 46 H (9-20) mg/dL Creatinine 2.22 H (0.66-1.25) mg/dL Calcium 6.6 L (8.4-10.2) mg/dL Troponin I (0.000-0.034) ng/mL Microbiology - Last 24 Hours (Table) 03/30/19 01:19 Urine Culture - Final Urine,Clean Catch 03/29/19 23:45 Blood Culture - Preliminary Blood No Growth after 24 hours 03/30/19 01:06 Gram Stain - Preliminary Sputum Sputum Culture - Preliminary Assessment and Plan Assessment: Acute cardiopulmonary arrest likely due to cocaine and marijuana use. Currently on mechanical ventilator. Down time more than 20 minutes Acute hypoxemic respiratory failure Acute non-ST elevated OR likely related to microvascular ischemia due to cocaine use Paroxysmal atrial fibrillation. Rate controlled. Possible anoxic encephalopathy Acute kidney injury most likely prerenal Severe lactic acidosis DVT prophylaxis Plan: Patient is currently on mechanical ventilator. Patient is off sedation. Patient will be continued on heparin drip and empiric antibiotics in the form of Zosyn. Cardiology and pulmonary is following. Patient was started on aspirin and Lopressor and Lipitor. Further recommendations based on the clinical course. Prognosis guarded. discussed with family at bedside in detail. Time with Patient: Greater than 30
--- NOTE | 2019-03-31 23:37 | XR ---
EXAMINATION TYPE: XR chest 1V portable DATE OF EXAM: 03/31/2019 COMPARISON: Today HISTORY: Chest pain rib fracture TECHNIQUE: Single view FINDINGS: Heart is enlarged. There is mild pulmonary congestion. There is blunting of costophrenic an gles. There is no pneumothorax. There are chest leads. There is nasogastric tube. There is a left stephanie tral venous catheter with the tip in the superior vena cava. There are mild infiltrates at the lung b ases. IMPRESSION: There is probably congestive heart failure. Mild bilateral lower lobe pneumonia is probab ly present also. Pulmonary congestion increased slightly compared to exam this morning. No rib fractu re seen.
[2019-04-01] MEDS: PIPERACILLIN-TAZOBACTAM 3.375 GM in SODIUM CHLORIDE 0.9% 100 ML IVPB SCH ×3 (03:26→15:45)
[2019-04-01] MEDS: IPRATROPIUM-ALBUTEROL 3 ML NEB INHALATION SCH ×6 (03:28→23:28)
[2019-04-01] MEDS: SODIUM CHLORIDE 0.9% 1,000 ML IV SCH ×3 (03:30→15:46)
[2019-04-01] MEDS: PROPOFOL 1,000 MG in EMPTY BAG 1 BAG IV SCH ×2 (03:43→15:45)
[2019-04-01] MEDS: NOREPINEPHRINE 4 MG in SODIUM CHLORIDE 0.9% 250 ML IV SCH (03:45)
[2019-04-01 04:39] LABS: ABG Base Excess -7.5 mmol/L; ABG HCO3 20 mmol/L (21-25); ABG Oxygen Saturation 95.2 % (94-97); ABG PCO2 43 mmHg (35-45); ABG PH 7.26 (7.35-7.45); ABG PO2 85 mmHg (83-108); ABG TCO2 21 mmol/L (19-24); Allen Test Performed? Yes
[2019-04-01 04:56] LABS: Basophils % (A) 0 %; Eosinophils # (A) 0.1 k/uL (0-0.7); Eosinophils % (A) 1 %; HCT 46.7 % (39.0-53.0); HGB 14.3 gm/dL (13.0-17.5); Hypochromasia Marked; Lymphocytes # (A) 0.7 k/uL (1.0-4.8); Lymphocytes % (A) 7 %; MCH 32.3 pg (25.0-35.0); MCHC 30.7 g/dL (31.0-37.0); MCV 105.2 fL (80.0-100.0); Macrocytosis Moderate; Mean Platelet Volume 8.6; Monocytes # (A) 0.4 k/uL (0-1.0); Monocytes % (A) 4 %; Neutrophils # (A) 8.8 k/uL (1.3-7.7); Neutrophils % (A) 87 %; Platelet Count 144 k/uL (150-450); RBC 4.44 m/uL (4.30-5.90); RDW 14.8 % (11.5-15.5); WBC 10.1 k/uL (3.8-10.6)
[2019-04-01 05:04] LABS: Potassium 4.2 mmol/L (3.5-5.1)
[2019-04-01 05:57] LABS: Glucose,Whole Blood 97 mg/dL (75-99)
[2019-04-01] MEDS ORDERED: SODIUM BICARB 8.4% 50 ML SYR (1 MEQ/ML) IV STA (08:31)
[2019-04-01] MEDS: SODIUM BICARBONATE TAB 650 MG TAB PO SCH (08:35)
[2019-04-01] MEDS: CHLORHEXIDINE GLUCONATE 15 ML CUP MUCOUS MEM SCH ×2 (08:35→21:03)
[2019-04-01] MEDS: ASPIRIN 81 MG PO SCH (08:36)
[2019-04-01] MEDS: PANTOPRAZOLE 40 MG/10 ML VIAL IV SCH (08:36)
[2019-04-01] MEDS: METOPROLOL TARTRATE 25 MG TAB PO SCH ×2 (08:36→21:03)
--- NOTE | 2019-04-01 09:19 | XR ---
EXAMINATION TYPE: XR chest 1V portable DATE OF EXAM: 04/01/2019 COMPARISON: 03/31/2019 HISTORY: Tube placement TECHNIQUE: Single frontal view of the chest is obtained. FINDINGS: NG tube stable. Left-sided central line stable. Bilateral consolidation and pleural effusi on with interstitial changes. Arthropathy the shoulder. No pneumothorax. IMPRESSION: 1. Stable x-ray correlate for mild CHF versus pneumonia
--- NOTE | 2019-04-01 10:00 | PN ---
PROGRESS NOTE Mr. Billy had a cardiac arrest. He is still quite acidotic with a pH in the 7.28 range. Hemodynamically, he is stable making modest urine output. However, the down time was at least 20 minutes. So I am not sure his neurological status. His pupils are reacting. Will await further input from Neurology or a CAT scan. Will not do any interventional from a coronary disease standpoint until we have further information. There is evidence of non-ST elevation [place]. The patient appears to be quite unresponsive. He is on a ventilator. Vital signs are; however, stable. Echo revealed ejection fraction in the range of 35%- 40% with volume overload-type picture with an inferior septum with multiple wall motion abnormalities. However, prognosis remains poor and once his neurological status is established, we will consider coronary angiography for this patient. At this time, it appears that his neurological status is still questionable. S1, S2 heard normally, short systolic murmur noted. Lungs reveal diminished air entry. Abdomen is soft, lower extremities reveal diminished pulses. The central nervous system assessment was not performed. MMODL / IJN: [id number] /
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
[2019-04-01] MEDS: DEXTROSE 5% IN WATER 1,000 ML with SODIUM BICARB (1 MEQ/ML) 150 ML IV SCH (11:48)
[2019-04-01] MEDS: HEPARIN SOD,PORK IN 0.45% NACL 25,000 UNIT in 0.45% NACL 1 250ML.BAG IV SCH (11:49)
[2019-04-01] MEDS ORDERED: HEPARIN SODIUM,PORCINE 5,000 UNIT/ML 1 ML VIAL IV STA (12:21)
[2019-04-01 13:00] LABS: Glucose,Whole Blood 105 mg/dL (75-99)
[2019-04-01 18:15] LABS: Glucose,Whole Blood 122 mg/dL (75-99)
[2019-04-01 19:01] LABS: Glucose,Whole Blood 131 mg/dL (75-99)
[2019-04-01] MEDS: ATORVASTATIN 40 MG TAB PO SCH (21:03)
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
[2019-04-02] MEDS: PROPOFOL 1,000 MG in EMPTY BAG 1 BAG IV SCH ×4 (00:18→23:07)
[2019-04-02] MEDS: PIPERACILLIN-TAZOBACTAM 3.375 GM in SODIUM CHLORIDE 0.9% 100 ML IVPB SCH ×3 (00:19→16:21)
[2019-04-02] MEDS: DEXTROSE 5% IN WATER 1,000 ML with SODIUM BICARB (1 MEQ/ML) 150 ML IV SCH ×3 (00:20→22:00)
[2019-04-02] MEDS: IPRATROPIUM-ALBUTEROL 3 ML NEB INHALATION SCH ×6 (03:57→23:06)
[2019-04-02 04:41] LABS: ABG Base Excess 0.1 mmol/L; ABG HCO3 27 mmol/L (21-25); ABG Oxygen Saturation 93.5 % (94-97); ABG PCO2 60 mmHg (35-45); ABG PH 7.26 (7.35-7.45); ABG PO2 77 mmHg (83-108); ABG TCO2 29 mmol/L (19-24); Allen Test Performed? Yes
[2019-04-02 05:01] LABS: HCT 35.9 % (39.0-53.0); HGB 11.1 gm/dL (13.0-17.5); Hypochromasia Moderate; MCH 32.5 pg (25.0-35.0); MCV 104.9 fL (80.0-100.0); Macrocytosis Moderate; Mean Platelet Volume 8.5; Platelet Count 102 k/uL (150-450); RBC 3.43 m/uL (4.30-5.90); RDW 14.8 % (11.5-15.5); WBC 7.5 k/uL (3.8-10.6)
[2019-04-02 06:35] LABS: Glucose,Whole Blood 135 mg/dL (75-99)
[2019-04-02 06:38] LABS: Calcium 4.7 mg/dL (8.4-10.2); Potassium 2.5 mmol/L (3.5-5.1)
[2019-04-02] MEDS ORDERED: Potassium Replacement Protocol 1 EACH MISC MISCELLANE PRN (06:38)
[2019-04-02] MEDS: NOREPINEPHRINE 4 MG in SODIUM CHLORIDE 0.9% 250 ML IV SCH (06:46)
[2019-04-02] MEDS: POTASSIUM CHLORIDE 20 MEQ in WATER FOR INJECTION 1 100ML.BAG IVPB SCH ×2 (07:00→14:41)
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
[2019-04-02] MEDS ORDERED: CALCIUM GLUCONATE 1 GM in SODIUM CHLORIDE 0.9% 100 ML IVPB ONE (08:00)
--- NOTE | 2019-04-02 08:41 | XR ---
EXAMINATION TYPE: XR chest 1V portable DATE OF EXAM: 04/02/2019 COMPARISON: 04/01/2019 HISTORY: Shortness of breath TECHNIQUE: Single frontal view of the chest is obtained. FINDINGS: NG tube stable. Left-sided central line stable. Bilateral consolidation and pleural effusi on with interstitial changes. Arthropathy the shoulder. No pneumothorax. IMPRESSION: 1. Stable x-ray correlate for mild CHF. Otherwise consider pneumonia .
[2019-04-02 09:22] LABS: ABG Base Excess 0.7 mmol/L; ABG HCO3 26 mmol/L (21-25); ABG Oxygen Saturation 98.1 % (94-97); ABG PCO2 48 mmHg (35-45); ABG PH 7.35 (7.35-7.45); ABG PO2 111 mmHg (83-108); ABG TCO2 28 mmol/L (19-24)
[2019-04-02] MEDS: ASPIRIN 81 MG PO SCH (09:27)
[2019-04-02] MEDS: PANTOPRAZOLE 40 MG/10 ML VIAL IV SCH (09:27)
[2019-04-02] MEDS: METOPROLOL TARTRATE 25 MG TAB PO SCH ×2 (09:27→20:28)
[2019-04-02] MEDS: CHLORHEXIDINE GLUCONATE 15 ML CUP MUCOUS MEM SCH ×2 (09:27→20:28)
[2019-04-02] MEDS: HEPARIN SOD,PORK IN 0.45% NACL 25,000 UNIT in 0.45% NACL 1 250ML.BAG IV SCH ×2 (09:30→13:06)
--- NOTE | 2019-04-02 10:06 | PN ---
PROGRESS NOTE Mr. Billy is status post cardiac arrest. He remains acidotic, he is on a bicarb drip. Prognosis is poor. EEG revealed anoxic encephalopathy and ejection fraction is poor with wall motion abnormalities. Vitals are stable. Neurologically patient is not responsive. He is on a sedation holiday. S1-S2 heard normally, short systolic murmur noted. Lungs reveal diminished air entry. Abdomen and lower extremity exam is unchanged. Central nervous system assessment was not performed. From a cardiac standpoint, I would recommend no aggressive intervention. Apparently there is going to be a family discussion today and based on the clinical picture, the chance of his neurological recovery is less as hour goes by. I would not recommend any aggressive intervention cardiac-lilly and if family is agreeable, we should seriously consider a terminal wean. Prognosis remains poor. MMODL / IJN: [id number] /
[2019-04-02 11:59] LABS: Glucose,Whole Blood 142 mg/dL (75-99)
[2019-04-02 12:12] VITALS: BMI 23.0
[2019-04-02 13:03] LABS: Basophils # (A) 0.1 k/uL (0-0.2); Basophils % (A) 1 %; Eosinophils # (A) 0.1 k/uL (0-0.7); Eosinophils % (A) 1 %; HCT 38.7 % (39.0-53.0); HGB 12.1 gm/dL (13.0-17.5); Hypochromasia Moderate; Lymphocytes # (A) 0.7 k/uL (1.0-4.8); Lymphocytes % (A) 9 %; MCH 32.5 pg (25.0-35.0); MCHC 31.4 g/dL (31.0-37.0); MCV 103.4 fL (80.0-100.0); Macrocytosis Slight; Mean Platelet Volume 8.5; Monocytes # (A) 0.4 k/uL (0-1.0); Monocytes % (A) 5 %; Neutrophils # (A) 6.5 k/uL (1.3-7.7); Neutrophils % (A) 83 %; Platelet Count 121 k/uL (150-450); RBC 3.74 m/uL (4.30-5.90); RDW 14.8 % (11.5-15.5); WBC 7.8 k/uL (3.8-10.6)
[2019-04-02 13:27] LABS: Ionized Calcium 4.7 mg/dL (4.5-5.3)
[2019-04-02 13:39] LABS: Albumin 2.1 g/dL (3.5-5.0); Calcium 7.2 mg/dL (8.4-10.2); Potassium 3.7 mmol/L (3.5-5.1); Total Bilirubin 0.4 mg/dL (0.2-1.3); Total Protein 3.9 g/dL (6.3-8.2)
[2019-04-02] MEDS: SODIUM CHLORIDE 0.9% 1,000 ML IV SCH (15:50)
--- NOTE | 2019-04-02 17:57 | P.PN ---
Subjective Discussed case with nurse. Family was of found and had a family meeting. Plan is for terminal wean tomorrow Objective - Vital Signs Vital signs: Vital Signs Temp 98.2 F 04/02/19 16:00 Pulse 102 H 04/02/19 17:00 Resp 24 04/02/19 17:00 BP 126/83 04/02/19 16:00 Pulse Ox 96 04/02/19 17:00 Intake & Output 04/01/19 04/02/19 04/02/19 18:59 06:59 18:59 Intake Total 2140.438 7156.175 2224.325 Output Total 931 2320 950 Balance 1209.438 -432.905 8257.325 Weight 68.6 kg 68.6 kg Intake: IV 780 1320 1320 0.9 NS 680 220 220 Dextrose 5% in Water 1, 1100 1100 000 ml @ 100 mls/hr IV . [id number] MARIA with Sodium Bicarb (1 Meq/ml) 150 ml Rx#:[id number] zosyn 100 Intake, IV Titration 1140.438 162.350 683.325 Amount Calcium Gluconate 1 gm In 100 Sodium Chloride 0.9% 100 ml @ 100 mls/hr IVPB ONCE ONE Rx#:[id number] Dextrose 5% in Water 1, 900 000 ml @ 100 mls/hr IV . [id number] MARIA with Sodium Bicarb (1 Meq/ml) 150 ml Rx#:[id number] Heparin Sod,Pork in 0.45% 62.124 243.48 NaCl 25,000 unit In 0.45 % NaCl 1 250ml.bag @ 12 UNITS/KG/HR 6.532 mls/hr IV .Q24H MARIA Rx#: [id number] Piperacillin-Tazobactam 3 100 200 .375 gm In Sodium Chloride 0.9% 100 ml @ 25 mls/hr IVPB Q8HR MARIA Rx# :[id number] Propofol 1,000 mg In 78.314 162.350 139.845 Empty Bag 1 bag @ Titrate IV .Q0M [facility] Rx#: [id number] Tube Feeding 220 120 617 Other 120 Output: Urine 931 1420 900 Stool 900 50 Other: Voiding Method Indwelling Catheter Indwelling Catheter Indwelling Catheter ABP, PAP, CO, CI - Last Documented Arterial Blood Pressure 193/95 - EENT Eyes: Present: abnormal pupil Ears: bilateral: normal - Respiratory Respiratory: bilateral: CTA - Cardiovascular Rhythm: regular - Gastrointestinal General gastrointestinal: Present: absent bowel sounds, distended - Integumentary Integumentary: Present: normal - Neurologic Neurologic Comment(s): Patient sedated - Musculoskeletal Musculoskeletal: Present: generalized weakness - Psychiatric Psychiatric Comment(s): Patient on ventilator unable to clinically - Labs CBC & Chem 7: 04/02/19 12:35 04/02/19 12:35 Labs: Abnormal Lab Results - Last 24 Hours (Table) 04/01/19 04/01/19 04/01/19 Range/Units 18:03 18:21 18:50 RBC (4.30-5.90) m/uL Hgb (13.0-17.5) gm/dL Hct (39.0-53.0) % MCV (80.0-100.0) fL Plt Count (150-450) k/uL Lymphocytes # (1.0-4.8) k/uL APTT 61.5 H (22.0-30.0) sec ABG pH (7.35-7.45) ABG pCO2 (35-45) mmHg ABG pO2 (83-108) mmHg ABG HCO3 (21-25) mmol/L ABG Total CO2 (19-24) mmol/L ABG O2 Saturation (94-97) % Potassium (3.5-5.1) mmol/L Chloride (98-107) mmol/L Carbon Dioxide (22-30) mmol/L BUN (9-20) mg/dL Creatinine (0.66-1.25) mg/dL Glucose (74-99) mg/dL POC Glucose (mg/dL) 122 H 131 H (75-99) mg/dL Calcium (8.4-10.2) mg/dL Total Protein (6.3-8.2) g/dL Albumin (3.5-5.0) g/dL 04/02/19 04/02/19 04/02/19 Range/Units 04:40 04:45 04:45 RBC 3.43 L (4.30-5.90) m/uL Hgb 11.1 L D (13.0-17.5) gm/dL Hct 35.9 L (39.0-53.0) % MCV 104.9 H (80.0-100.0) fL Plt Count 102 L (150-450) k/uL Lymphocytes # (1.0-4.8) k/uL APTT (22.0-30.0) sec ABG pH 7.26 L (7.35-7.45) ABG pCO2 60 H (35-45) mmHg ABG pO2 77 L (83-108) mmHg ABG HCO3 27 H (21-25) mmol/L ABG Total CO2 29 H (19-24) mmol/L ABG O2 Saturation 93.5 L (94-97) % Potassium 2.5 L* (3.5-5.1) mmol/L Chloride 124 H (98-107) mmol/L Carbon Dioxide 19 L (22-30) mmol/L BUN 43 H (9-20) mg/dL Creatinine 1.77 H (0.66-1.25) mg/dL Glucose 110 H (74-99) mg/dL POC Glucose (mg/dL) (75-99) mg/dL Calcium 4.7 L* (8.4-10.2) mg/dL Total Protein (6.3-8.2) g/dL Albumin (3.5-5.0) g/dL 04/02/19 04/02/19 04/02/19 Range/Units 04:45 06:23 09:17 RBC (4.30-5.90) m/uL Hgb (13.0-17.5) gm/dL Hct (39.0-53.0) % MCV (80.0-100.0) fL Plt Count (150-450) k/uL Lymphocytes # (1.0-4.8) k/uL APTT 48.8 H (22.0-30.0) sec ABG pH (7.35-7.45) ABG pCO2 48 H (35-45) mmHg ABG pO2 111 H (83-108) mmHg ABG HCO3 26 H (21-25) mmol/L ABG Total CO2 28 H (19-24) mmol/L ABG O2 Saturation 98.1 H (94-97) % Potassium (3.5-5.1) mmol/L Chloride (98-107) mmol/L Carbon Dioxide (22-30) mmol/L BUN (9-20) mg/dL Creatinine (0.66-1.25) mg/dL Glucose (74-99) mg/dL POC Glucose (mg/dL) 135 H (75-99) mg/dL Calcium (8.4-10.2) mg/dL Total Protein (6.3-8.2) g/dL Albumin (3.5-5.0) g/dL 04/02/19 04/02/19 04/02/19 Range/Units 11:47 12:35 12:35 RBC 3.74 L (4.30-5.90) m/uL Hgb 12.1 L (13.0-17.5) gm/dL Hct 38.7 L (39.0-53.0) % MCV 103.4 H (80.0-100.0) fL Plt Count 121 L (150-450) k/uL Lymphocytes # 0.7 L (1.0-4.8) k/uL APTT (22.0-30.0) sec ABG pH (7.35-7.45) ABG pCO2 (35-45) mmHg ABG pO2 (83-108) mmHg ABG HCO3 (21-25) mmol/L ABG Total CO2 (19-24) mmol/L ABG O2 Saturation (94-97) % Potassium (3.5-5.1) mmol/L Chloride 114 H (98-107) mmol/L Carbon Dioxide (22-30) mmol/L BUN 58 H (9-20) mg/dL Creatinine 2.50 H (0.66-1.25) mg/dL Glucose 140 H (74-99) mg/dL POC Glucose (mg/dL) 142 H (75-99) mg/dL Calcium 7.2 L (8.4-10.2) mg/dL Total Protein 3.9 L (6.3-8.2) g/dL Albumin 2.1 L (3.5-5.0) g/dL Microbiology - Last 24 Hours (Table) 03/29/19 23:45 Blood Culture - Preliminary Blood No Growth after 72 hours 03/30/19 01:06 Gram Stain - Final Sputum Sputum Culture - Final - Imaging and Cardiology Chest x-ray: report reviewed Assessment and Plan Plan: Assessment Acute of cardiopulmonary arrest secondary to cocaine Acute hypoxic respiratory failure on ventilator Acute non-ST elevated MN related to ischemia secondary to cocaine use Paroxysmal atrial fibrillation Anoxic encephalopathy Acute kidney injury secondary to cardiopulmonary arrest severe lactic acidosis Cardiomyopathy ejection fraction 35-40% systolic dysfunction Hypokalemia Hypocalcemia Plan Continue consultation with cardiology pulmonology Probable terminal wean tomorrow
[2019-04-02] MEDS: ATORVASTATIN 40 MG TAB PO SCH (20:28)
[2019-04-02 23:22] LABS: Glucose,Whole Blood 129 mg/dL (75-99)
[2019-04-03] MEDS: PIPERACILLIN-TAZOBACTAM 3.375 GM in SODIUM CHLORIDE 0.9% 100 ML IVPB SCH ×2 (00:45→08:50)
[2019-04-03] MEDS: IPRATROPIUM-ALBUTEROL 3 ML NEB INHALATION SCH ×3 (03:12→11:04)
[2019-04-03 04:32] LABS: ABG HCO3 31 mmol/L (21-25); ABG Oxygen Saturation 97.8 % (94-97); ABG PCO2 49 mmHg (35-45); ABG PH 7.41 (7.35-7.45); ABG PO2 98 mmHg (83-108); ABG TCO2 32 mmol/L (19-24)
[2019-04-03 04:34] LABS: Allen Test Performed? no
[2019-04-03 05:43] LABS: HCT 39.3 % (39.0-53.0); HGB 12.1 gm/dL (13.0-17.5); Hypochromasia Slight; MCH 31.6 pg (25.0-35.0); MCHC 30.8 g/dL (31.0-37.0); MCV 102.5 fL (80.0-100.0); Macrocytosis Slight; Mean Platelet Volume 8.2; Platelet Count 102 k/uL (150-450); RBC 3.83 m/uL (4.30-5.90); RDW 14.8 % (11.5-15.5)
[2019-04-03] MEDS: PROPOFOL 1,000 MG in EMPTY BAG 1 BAG IV SCH (06:05)
[2019-04-03 06:18] LABS: Ionized Calcium 4.7 mg/dL (4.5-5.3)
[2019-04-03 06:42] LABS: Calcium 7.4 mg/dL (8.4-10.2); Potassium 3.4 mmol/L (3.5-5.1)
[2019-04-03] MEDS: POTASSIUM CHLORIDE 20 MEQ in WATER FOR INJECTION 1 100ML.BAG IVPB SCH ×2 (06:54→08:51)
[2019-04-03] MEDS: PANTOPRAZOLE 40 MG/10 ML VIAL IV SCH (08:50)
[2019-04-03] MEDS: ASPIRIN 81 MG PO SCH (08:50)
[2019-04-03] MEDS: CHLORHEXIDINE GLUCONATE 15 ML CUP MUCOUS MEM SCH (08:50)
[2019-04-03] MEDS: METOPROLOL TARTRATE 25 MG TAB PO SCH (08:50)
[2019-04-03] MEDS: HEPARIN SOD,PORK IN 0.45% NACL 25,000 UNIT in 0.45% NACL 1 250ML.BAG IV SCH (08:51)
[2019-04-03] MEDS: NOREPINEPHRINE 4 MG in SODIUM CHLORIDE 0.9% 250 ML IV SCH (08:52)
[2019-04-03 09:13] VITALS: TEMP 97.9
--- NOTE | 2019-04-03 09:13 | XR ---
EXAMINATION TYPE: XR chest 1V portable DATE OF EXAM: 04/03/2019 COMPARISON: 04/02/2019 HISTORY: ET tube placement TECHNIQUE: Single frontal view of the chest is obtained. FINDINGS: ET tube seen with the tip approximately 2.7 cm above the lisa. NG tube noted coursing in the upper abdomen. Central line stable. Bilateral consolidation and pleural effusion pattern noted. No pneumothorax. Diffuse osteopenia. Mild cardiomegaly. IMPRESSION: 1. ET tube 2.7 cm above lisa. 2. Diffuse pleural-parenchymal changes most typical of CHF. Otherwise consider pneumonia.
[2019-04-03] MEDS ORDERED: FUROSEMIDE 10 MG/ML 4 ML VIAL IV STA (10:06)
[2019-04-03] MEDS: CLEVIDIPINE BUTYRATE 25 MG in EMPTY BAG 1 BAG IV SCH ×2 (10:14→11:48)
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
[2019-04-03] MEDS: DEXTROSE 5% IN WATER 1,000 ML with SODIUM BICARB (1 MEQ/ML) 150 ML IV SCH (10:17)
[2019-04-03 11:49] LABS: Glucose,Whole Blood 102 mg/dL (75-99)
--- NOTE | 2019-04-03 13:17 | P.PN ---
Subjective Patient unchanged ventilatory dependent. Had family discussion about terminal wean Objective - Vital Signs Vital signs: Vital Signs Temp 97.9 F 04/03/19 12:00 Pulse 92 04/03/19 13:00 Resp 20 04/03/19 13:00 BP 123/80 04/03/19 13:00 Pulse Ox 95 04/03/19 13:00 Intake & Output 04/02/19 04/03/19 04/03/19 18:59 06:59 18:59 Intake Total 2899.325 2470.805 908.172 Output Total 1025 1255 565 Balance 2638.327 4883.805 343.172 Weight 68.6 kg 68.7 kg Intake: IV 1440 1560 356 0.9 NS 240 260 120 Dextrose 5% in Water 1, 1200 1300 200 000 ml @ 100 mls/hr IV . [id number] MARIA with Sodium Bicarb (1 Meq/ml) 150 ml Rx#:[id number] pressure bag x2 36 Intake, IV Titration 683.325 197.805 474.172 Amount Calcium Gluconate 1 gm In 100 Sodium Chloride 0.9% 100 ml @ 100 mls/hr IVPB ONCE ONE Rx#:[id number] Clevidipine Butyrate 25 17.800 mg In Empty Bag 1 bag @ 4 MG/HR 8 mls/hr IV . Q6H15M [facility] Rx#:[id number] Heparin Sod,Pork in 0.45% 243.48 193.511 NaCl 25,000 unit In 0.45 % NaCl 1 250ml.bag @ 12 UNITS/KG/HR 6.532 mls/hr IV .Q24H [facility] Rx#: [id number] Piperacillin-Tazobactam 3 200 100 .375 gm In Sodium Chloride 0.9% 100 ml @ 25 mls/hr IVPB Q8HR [facility] Rx# :[id number] Potassium Chloride 20 meq 100 In Water For Injection 1 100ml.bag @ 50 mls/hr IVPB Q2H [facility] Rx#: [id number] Propofol 1,000 mg In 139.845 197.805 62.861 Empty Bag 1 bag @ Titrate IV .Q0M [facility] Rx#: [id number] Tube Feeding 656 623 78 Other 120 90 Output: Urine 975 1205 565 Stool 50 50 Other: Voiding Method Indwelling Catheter Indwelling Catheter Indwelling Catheter ABP, PAP, CO, CI - Last Documented Arterial Blood Pressure 135/74 - Constitutional General appearance: Present: no acute distress - EENT Eyes: Present: abnormal pupil Ears: bilateral: normal - Respiratory Respiratory: bilateral: rhonchi - Cardiovascular Rhythm: irregularly irregular - Gastrointestinal General gastrointestinal: Present: absent bowel sounds, distended - Integumentary Integumentary Comment(s): Generalized anasarca - Neurologic Neurologic Comment(s): Positive Babinski negative corneal reflex - Musculoskeletal Musculoskeletal Comment(s): Patient intubated unable to communicate - Labs CBC & Chem 7: 04/03/19 04:55 04/03/19 04:55 Labs: Abnormal Lab Results - Last 24 Hours (Table) 04/02/19 04/02/19 04/03/19 Range/Units 12:35 23:11 04:28 RBC (4.30-5.90) m/uL Hgb (13.0-17.5) gm/dL MCV (80.0-100.0) fL MCHC (31.0-37.0) g/dL Plt Count (150-450) k/uL APTT (22.0-30.0) sec ABG pCO2 49 H (35-45) mmHg ABG HCO3 31 H (21-25) mmol/L ABG Total CO2 32 H (19-24) mmol/L ABG O2 Saturation 97.8 H (94-97) % Potassium (3.5-5.1) mmol/L Chloride 114 H (98-107) mmol/L Carbon Dioxide (22-30) mmol/L BUN 58 H (9-20) mg/dL Creatinine 2.50 H (0.66-1.25) mg/dL Glucose 140 H (74-99) mg/dL POC Glucose (mg/dL) 129 H (75-99) mg/dL Calcium 7.2 L (8.4-10.2) mg/dL Total Protein 3.9 L (6.3-8.2) g/dL Albumin 2.1 L (3.5-5.0) g/dL 04/03/19 04/03/19 04/03/19 Range/Units 04:55 04:55 04:55 RBC 3.83 L (4.30-5.90) m/uL Hgb 12.1 L (13.0-17.5) gm/dL MCV 102.5 H (80.0-100.0) fL MCHC 30.8 L (31.0-37.0) g/dL Plt Count 102 L (150-450) k/uL APTT 53.6 H (22.0-30.0) sec ABG pCO2 (35-45) mmHg ABG HCO3 (21-25) mmol/L ABG Total CO2 (19-24) mmol/L ABG O2 Saturation (94-97) % Potassium 3.4 L (3.5-5.1) mmol/L Chloride 111 H (98-107) mmol/L Carbon Dioxide 32 H (22-30) mmol/L BUN 54 H (9-20) mg/dL Creatinine 2.34 H (0.66-1.25) mg/dL Glucose 133 H (74-99) mg/dL POC Glucose (mg/dL) (75-99) mg/dL Calcium 7.4 L (8.4-10.2) mg/dL Total Protein (6.3-8.2) g/dL Albumin (3.5-5.0) g/dL 04/03/19 Range/Units 11:38 RBC (4.30-5.90) m/uL Hgb (13.0-17.5) gm/dL MCV (80.0-100.0) fL MCHC (31.0-37.0) g/dL Plt Count (150-450) k/uL APTT (22.0-30.0) sec ABG pCO2 (35-45) mmHg ABG HCO3 (21-25) mmol/L ABG Total CO2 (19-24) mmol/L ABG O2 Saturation (94-97) % Potassium (3.5-5.1) mmol/L Chloride (98-107) mmol/L Carbon Dioxide (22-30) mmol/L BUN (9-20) mg/dL Creatinine (0.66-1.25) mg/dL Glucose (74-99) mg/dL POC Glucose (mg/dL) 102 H (75-99) mg/dL Calcium (8.4-10.2) mg/dL Total Protein (6.3-8.2) g/dL Albumin (3.5-5.0) g/dL Microbiology - Last 24 Hours (Table) 03/29/19 23:45 Blood Culture - Preliminary Blood No Growth after 96 hours Assessment and Plan Plan: Assessment Acute cardiopulmonary arrest secondary to cocaine and marijuana use Acute hypoxic respiratory failure on mechanical ventilation dependent acute non- ST elevated NH related to ischemia secondary to cocaine use Anoxic encephalopathy Kidney injury secondary to cardiopulmonary arrest severe lactic acidosis Cardiomyopathy with CHF systolic dysfunction EF 35-40% Hypokalemia Hypocalcemia Severe diffuse cerebral dysfunction Plan Continue consultation with cardiology pulmonary neurology Terminal wean on family consent
[2019-04-03] MEDS: MORPHINE SULFATE (100 MG/2 ML) 100 MG in SODIUM CHLORIDE 0.9% 100 ML IV SCH ×2 (14:21→21:18)
[2019-04-03 15:02] VITALS: BP 111/96
[2019-04-03] MEDS ORDERED: HEPARIN SODIUM,PORCINE 5,000 UNIT/ML 1 ML VIAL SQ SCH (16:00)
[2019-04-03 17:50] LABS: Glucose,Whole Blood 115 mg/dL (75-99)
[2019-04-03] MEDS: SODIUM CHLORIDE 0.9% 1,000 ML IV SCH (17:58)
[2019-04-03 19:08] VITALS: RESP 12
[2019-04-03 19:47] VITALS: PULSE 115
--- NOTE | 2019-04-04 12:15 | P.DS ---
Providers Date of admission: 03/30/19 04:36 Expected date of discharge: 04/03/19 Attending physician: Warren Mcdonald Consults: 03/30/19 04:39 Consult Physician Urgent Consulting Provider: Tico Rosen Consult Reason/Comments: cardiac arrest Do you want consulting provider notified?: Already Contacted Primary care physician: Warren Mcdonald [facility] Course: 53-year-old male was brought to the emergency room after being found down. Rescued by EMS. Patient had 20 minutes of down time. Little no history patient has not been in our office. Patient was intubated and put on a ventilator was examined by cardiology and pulmonology family was found and decision was made for comfort care and terminal wean. Time of 214804/03/2019 Assessment acute cardiopulmonary arrest secondary to cocaine marijuana use acute hypoxic respiratory failure on mechanical ventilation acute non-ST [place] related to microvascular ischemia secondary to cocaine use paroxysmal atrial fibrillation Anoxic encephalopathy Acute kidney injury Severe lactic acidosis Cardiomyopathy congestive heart failure systolic dysfunction EF 35-40% Hypokalemia Hypocalcemia Cause of cardiac ischemia with [place] related to cocaine use acute cardiopulmonary arrest Patient Condition at Discharge: Critical Plan - Discharge Summary Discharge Rx Participant: Yes New Discharge Prescriptions: No Action No Known Home Medications Discharge Medication List No Known Home Medications 03/30/19 [History] Follow up Appointment(s)/Referral(s): None,Stated [REFERRING] - 1-2 days Discharge Disposition: Plan of Treatment: Cause of cardiac ischemia secondary to cocaine use with subsequent acute cardiopulmonary arrest - Preliminary Cause of Preliminary Cause of : Cause of cardiac ischemia acute cardiopulmonary arrest
== END 2019-04-03 21:35 | disposition expired ==
LOC: EC 23:30 → 2SICU 03-30 04:36
PROVIDERS: ADMIT Family Medicine; ATTEND Family Medicine
PROC: 02HV33Z Insertion of Infusion Device into Superior Vena Cava, Percutaneous Approach (ICD-10-PCS; principal; 2019-03-30)
PROC: 5A1955Z Respiratory Ventilation, Greater than 96 Consecutive Hours (ICD-10-PCS; 2019-03-30)
PROC: 0BH17EZ Insertion of Endotracheal Airway into Trachea, Via Natural or Artificial Opening (ICD-10-PCS; 2019-03-30)
PROC: 03HY32Z Insertion of Monitoring Device into Upper Artery, Percutaneous Approach (ICD-10-PCS; 2019-03-30)
PROC: 4A133B1 Monitoring of Arterial Pressure, Peripheral, Percutaneous Approach (ICD-10-PCS; 2019-03-30)
PROC: 4A133J1 Monitoring of Arterial Pulse, Peripheral, Percutaneous Approach (ICD-10-PCS; 2019-03-30)
DX: I21.4 Non-ST elevation (NSTEMI) myocardial infarction (principal); J96.01 Acute respiratory failure with hypoxia; R40.20 Unspecified coma; J18.9 Pneumonia, unspecified organism; R40.2313 Coma scale, best motor response, none, at hospital admission; R40.2113 Coma scale, eyes open, never, at hospital admission; R40.2213 Coma scale, best verbal response, none, at hospital admission; E87.2 Acidosis; I42.7 Cardiomyopathy due to drug and external agent; G93.1 Anoxic brain damage, not elsewhere classified; I50.20 Unspecified systolic (congestive) heart failure; J98.11 Atelectasis; N17.9 Acute kidney failure, unspecified; Z99.11 Dependence on respirator [ventilator] status; K55.9 Vascular disorder of intestine, unspecified; Z66 Do not resuscitate; Z51.5 Encounter for palliative care; I46.8 Cardiac arrest due to other underlying condition; F14.188 Cocaine abuse with other cocaine-induced disorder; E83.51 Hypocalcemia; E86.0 Dehydration; F12.10 Cannabis abuse, uncomplicated; E87.6 Hypokalemia; I48.0 Paroxysmal atrial fibrillation; I08.1 Rheumatic disorders of both mitral and tricuspid valves; I44.5 Left posterior fascicular block; I46.9 Cardiac arrest, cause unspecified; J44.9 Chronic obstructive pulmonary disease, unspecified; Z79.82 Long term (current) use of aspirin; Z79.899 Other long term (current) drug therapy; I25.9 Chronic ischemic heart disease, unspecified
CPT/HCPCS: 36415; 36600; 70450; 71045; 72125; 80048; 80053; 80061; 80306; 80320; 80329; 81001; 82330; 82550; 82805; 83520; 83605; 83735; 84132; 84484; 85025; 85027; 85610; 85730; 87040; 87070; 87086; 87205; 93005; 93306; 94002; 94003; 94640; 95816